=== PATIENT | female | born 1965 | race Caucasian/White ===

== ENCOUNTER → 2018-01-21 | Outpatient (CLI) | payer OTHER ==
[~2018-01-21] MED LIST: CALCIUM 500 +1 EAC5 PO; ESTRADIOL TRAN1 EAC2 TOP; LEXAPRO 10 MG T10 M2 PO; MULTIVITAMINS1 EAC7 PO
--- NOTE | ~2018-01-21 | EKG ---
[place] [address] [place] [address] ELECTROCARDIOGRAM REPORT Name: JESSICA FUCHS Room #: SESAR Valdez#: [id number] Admission: 01/21/18 Attend Phys: Braulio Griggs Discharge: Date of : 65 Report #: [id number] THIS REPORT FOR: //name// [facility] Test Date: 2018-01-21 Test Time: 11:53:48 Pat Name: JESSICA FUCHS Department: Room: Gender: F [employer]: PASTOR : 1965 Requested By: Svetlana Watkins Order Number: [id number] MD: Measurements Intervals [place] Rate: 77 P: 42 VT: 171 QRS: 77 QRSD: 106 T: 29 QT: 393 QTc: 445 Interpretive Statements Sinus rhythm Abnormal inferior Q waves Borderline T abnormalities, anterior leads No previous ECG available for comparison [email or web address] By: 115 115 Epiphany MD Stephani /EPI
[2018-01-21 11:20] LABS: HEMATOCRIT 39.7 % (37.0-47.0); HEMOGLOBIN 13.6 gm/dL (12.0-15.0); MCH 30.2 pg (26.0-34.0); MCHC 34.3 g/dL (28.0-37.0); PLATELET COUNT 276 thou/uL (150-400); RBC 4.51 mil/uL (4.20-5.00); RDW 12.6 % (10.5-14.5); WBC 9.6 thou/uL (4.0-11.0)
[2018-01-21 11:35] LABS: ALBUMIN 3.5 g/dL (3.4-5.0); CALCIUM 8.9 mg/dL (8.5-10.1); POTASSIUM 3.9 mmol/L (3.5-5.1); TOTAL BILIRUBIN 0.6 mg/dL (<0.1-1.0); TOTAL PROTEIN 7.2 g/dL (6.4-8.2)
[2018-01-21 12:45] LABS: ABSOLUTE NEUTROPHILS 6.7 thou/uL (1.4-8.2); NUCLEATED RBCS 1 /100WBC
[2018-01-21 12:46] LABS: ANISOCYTOSIS SLIGHT; ATYPICAL LYMPHS 3 %
== END ==
LOC: CV 10:56
PROVIDERS: Surgery
DX: Z01.818 Encounter for other preprocedural examination (principal)

== ENCOUNTER → 2018-01-31 | Outpatient (CLI) | payer OTHER | LOC: RAD 09:54 | DX: J18.9 Pneumonia, unspecified organism (principal) ==

== ENCOUNTER 2018-02-13 05:34 | Observation (INO) | payer OTHER ==
[~2018-02-13] VITALS: Ht 170.2 cm; Wt 138.3 kg
[2018-02-13 07:00] VITALS: BP 123/66
[2018-02-13] MEDS ORDERED: HYCET 7.5 MG-3473 ML PO (09:43)
[2018-02-13] MEDS ORDERED: ZOFRAN ODT4 MG DISSOLVE (09:43)
[2018-02-13] MEDS ORDERED: PROTONIX40 M1 PO (09:43)
[2018-02-13 11:15] VITALS: BP 131/82
--- NOTE | 2018-02-13 11:52 | NUR ---
ASSUMED CARE OF PT AT 11:00. ARRIVED TO ROOM FROM PACU IN STABLE CONDITION. ASSESSMENT COMPLETED, ASSESSMENT CHARTED. A&0,X4, DROWSINESS NOTED. 2 L NC, HX NEELIMA, CPAP USE AT NIGHT. DENIES N/V/D. REPORTING 09/04, ABD "PRESSURE". MEDS GIVEN ORDERED. 5 LAP SITES WITH DERMABOND INTACT, MEDICAL PROFESSIONALS, NO BLEEDING NOTED. SCD'S IN PLACE. MAINTAINING STRICT NPO UNTIL TOMORROW. AT BEDSIDE. WILL CONTINUE TO MONITOR.
--- NOTE | 2018-02-13 19:01 | NUR ---
END OF SHIFT. NO CHANGE IN PT STATUS. LAP SITES X5 SEALED WITH DERMABOND, NO BLEEDING. REPORTING UPPER ABD "PRESSURE", MEDS GIVEN ORDERED. PT WALKED IN HALLWAY TODAY, NO PROBLEMS NOTED.
[2018-02-13 20:09] VITALS: BP 130/74
--- NOTE | 2018-02-13 23:59 | NUR ---
ASSUMED CARE OF PT AT 1900. PT A&O X4. LAP SITES CLEAN AND INTACT. PT NPO UNTIL [facility] STUDY COMPLETE IN AM. PT WEATS CPAP AT NIGHT. PAIN IS CONTROLLED WITH PRN PAIN MEDS. PT AMBULATED IN THE HALLS BEFORE BED. STATES "IT FEELS GOOD TO BE UP AND WALKING." PT CALLS APPROPRIATELLY. WILL CONTINUE TO MONITOR.
[2018-02-14 05:01] VITALS: BP 126/71
[2018-02-14 07:40] VITALS: BP 128/80
--- NOTE | 2018-02-14 08:01 | NUR ---
ASSUMED CARE OF PT AT 0700. ASSESSMENT COMPLETED AND CHARTED. A&0,X4. REPORTING NO PAIN OR ABD "PRESSURE" AT THIS TIME. DENIES N/V/D. PT UP TO WALK IN HALLWAYS AND VOIDING, NO PROBLEMS. LEFT ROOM AT 0740 FOR SWALLOW STUDY VIA WHEELCHAIR IN STABLE CONDITION. RETURNED AT 0802 IN STABLE CONDITION.
--- NOTE | 2018-02-14 08:53 | NUR ---
Discharge teaching completed with patient per Post Operative Sleeve Gastrectomy Instruction handout(see hard copy). Patient states understanding,denies questions.
[2018-02-14 10:36] VITALS: BP 128/80
--- NOTE | 2018-02-14 11:17 | NUR ---
0845-J dayton Canchola here at bedside with completed discharge teaching with patient per Week 1 Clear Liquid Diet handout(see hardcopy) and Week 2 Full Liquid diet handout(see hardcopy). [place] stated patient gave verbal understanding of all materials covered.
[2018-02-14 11:18] LABS: ABSOLUTE NEUTROPHILS 3.8 thou/uL (1.4-8.2); BASOPHILS 0.4 % (0.0-2.0); EOSINOPHILS 0.6 % (0.0-3.0); HEMATOCRIT 36.2 % (37.0-47.0); HEMOGLOBIN 12.1 gm/dL (12.0-15.0); LYMPHOCYTES 25.2 % (24.0-44.0); MCH 29.6 pg (26.0-34.0); MCHC 33.5 g/dL (28.0-37.0); MCV 88.3 fL (80.0-100.0); MONOCYTES 9.1 % (1.0-8.0); PLATELET COUNT 232 thou/uL (150-400); POLYS 64.7 % (36.0-66.0); RDW 13.3 % (10.5-14.5); WBC 5.9 thou/uL (4.0-11.0)
[2018-02-14 11:26] LABS: CREATININE 0.7 mg/dL (0.6-1.0); POTASSIUM 3.7 mmol/L (3.5-5.1)
[2018-02-14] MEDS ORDERED: OMEPRAZOLE20 M2 PO (11:30)
--- NOTE | 2018-02-14 13:11 | NUR ---
NEW DISCHARGE ORDERS. D/C INFORMATION GIVEN TO PT AND AT BEDSIDE. SCRIPTS ALREDY GIVEN TO PT AND FILLED AT PHARMACY. IV REMOVED, NO BLEEDING NOTED. PT BELONGINGS GATHERED AND SENT WITH PT. PT LEFT IN STABLE CONDITION VIA WHEELCHAIR. PT GIVEN LITERATURE AND CARENOTES ABOUT NEW SCRIPTS AND DIET. PT STATES NO QUESTIONS OR CONCERNS AT THIS TIME.
--- NOTE | 2018-02-18 11:07 | PATH ---
[facility] [address] [place] [address] PATHOLOGY RPT PROCEDURE Name: MAKENZIE MARRERO Room #: 427-P [facility] [place] M.RMechelle#: [id number] Admission: 02/13/18 Date of : 65 Discharge: 02/14/18 Report #: [id number] Path Case #: [id number] [facility] Accession Number: [id number] . 01 Material submitted: . STOMACH . 01 Clinical history: . Morbid obesity . 02 Diagnosis: Portion of stomach "stomach", partial gastrectomy: - Fundic gland polyps. - There is no evidence of adenomatous change, high-grade dysplasia or malignancy. (SHA:pit 02/15/2018) QTP/02/15/2018 . 02 Electronically signed: . Alonzo Foreman MD, Pathologist NPI- [id number] . 01 Gross description: . The specimen is received in formalin, labeled "Makenzie Marrero, stomach for gastric sleeve". Received is a partial gastrectomy specimen with a stapled margin of resection measuring 20.5 x 5.1 x 2.8 cm in greatest dimensions. The serosal surface is pink-breaux to pink-griffith and glistening in appearance. Opening the specimen reveals griffith-breaux mucosa with normal rugal folds. Two polyps are identified measuring 0.2 and 0.4 cm. The specimen is submitted representatively in cassette A1, to include both polyps. (CAA; 02/14/2018) QAC/QAC . 02 Pathologist provided ICD-10: K31.7 . 02 CPT . 540336 Specimen Comment: A courtesy copy of this report has been sent to Specimen Comment: [phone], , . Specimen Comment: Report sent to ,DR GRADY / DR MARCIAL Specimen Comment: A duplicate report has been generated due to demographic updates. Performed at: [address] [facility], [place], [place] [id number] [place] [address] PATHOLOGY RPT PROCEDURE Name: MAKENZIE MARRERO Room #: 427-P DIAZ Valdez#: [id number] Admission: 02/13/18 Date of : 65 Discharge: 02/14/18 Report #: [id number] Path Case #: [id number] MD David Coles MD Phone: [phone] Performed at: [address] [id number] MD Kristina Taylor MD Phone: [phone]
== END 2018-02-14 13:05 | disposition home or self-care (01) ==
LOC: OR 05:34 → TBA 05:35 → OR 10:58 → 4E 11:11 → OR 13:42 → ENTRNSPT 02-14 12:32 → EDTRNSPTSTS 02-14 12:44 → 4E 02-14 13:05
PROVIDERS: ADMIT Surgery
DX: E66.01 Morbid (severe) obesity due to excess calories (principal); K21.9 Gastro-esophageal reflux disease without esophagitis; E78.00 Pure hypercholesterolemia, unspecified; M19.90 Unspecified osteoarthritis, unspecified site; Z68.42 Body mass index [BMI] 45.0-49.9, adult
CPT/HCPCS: 10783; 50010; 50101; 50222; 50249; 50386; 50555; 50739; 50740; 50962; 51437; 52182; 52265; 53307; 53310; 53311; 54022; 54118; 56462; 56525; 56526; 57092; 62110; 62900; 70005